=== PATIENT | male | born 1965 | race Caucasian/White ===

== ENCOUNTER 2017-06-13 13:45 | Emergency (ER) | payer MEDICARE ==
[2017-06-13 14:36] LABS: BASOPHILS 0.2 % (0-2); HEMATOCRIT 45.3 % (42.0-54.0); HEMOGLOBIN 14.9 g/dL (13.5-17.5); IMMATURE GRANULOCYTES 0.2 % (0-5); LYMPHOCYTES 12.3 % (15-50); MCH 29.3 pg (26.0-34.0); MCHC 32.9 g/dL (31.0-37.0); MCV 89.2 fL (80.0-100.0); MEAN PLATELET VOLUME 9.8 fL (7.4-10.4); MONOCYTES 6.2 % (2-11); NEUTROPHILS 80.1 % (40-80); PLATELET COUNT 220 10x3/uL (130-400); RBC 5.08 10x6/uL (4.20-6.10); RDW 12.3 % (11.5-14.5); WBC 9.9 10x3/uL (4.8-10.8)
[2017-06-13 14:57] LABS: ALBUMIN 3.8 g/dL (3.4-5.0); ANION GAP 10.2 mmol/L (8-16); BILIRUBIN - TOTAL 0.3 mg/dL (0.2-1.3); CALCIUM 9.4 mg/dL (8.5-10.1); CARBON DIOXIDE 29.6 mmol/L (21.0-32.0); CREATININE - SERUM 1.1 mg/dL (0.6-1.3); POTASSIUM - SERUM 3.8 mmol/L (3.5-5.1); PROTEIN - SERUM 7.2 g/dL (6.4-8.2)
[2017-06-13 15:11] LABS: APPEARANCE TURBID (CLEAR); BILIRUBIN 2+ (NEGATIVE); COLOR AMBER (YELLOW); GLUCOSE 500 mg/dL (NEGATIVE); KETONE NEGATIVE (NEGATIVE); LEUKOCYTE ESTERASE TRACE (NEGATIVE); NITRITE POSITIVE (NEGATIVE); PROTEIN 2+ mg/dL (NEGATIVE)
[2017-06-13 15:14] LABS: AMORPHOUS SEDIMENT >1+ /lpf (NONE SEEN); BACTERIA MANY /hpf (NONE SEEN); EPITHELIAL CELLS 0-5 /hpf (0-5); GRANULAR CAST 0-5 /lpf (NONE SEEN); HYALINE CAST OCC /lpf (NONE SEEN); MUCUS >1+ /lpf (NONE SEEN); RED CELLS - URINE >50 /hpf (0-5); WHITE CELLS - URINE 0-5 /hpf (0-5)
== END 2017-06-13 16:55 | disposition home or self-care (01) ==
LOC: D.ER 13:45
PROVIDERS: Emergency Medicine
DX: N23 Unspecified renal colic (principal); N20.1 Calculus of ureter